=== PATIENT | female | born 1950 | race Caucasian/White ===

== ENCOUNTER 2016-06-08 12:34 | Day surgery (SDC) | payer OTHER ==
[~2016-06-08] VITALS: Ht 165.1 cm; Wt 67.4 kg
[~2016-06-08 12:34] MED LIST: ASPI-664 PO; EMPA25TA PO; GEMF600T60 PO; GLIP2.5T3 PO; METF1000 PO; OMEP20CA16 PO; SITA100T8 PO
[2016-06-08 13:56] VITALS: Ht 165.1 cm; Wt 67.4 kg
[2016-06-08 14:18] VITALS: BP 111/71; PULSE 80; RESP 18
[2016-06-08] MEDS ORDERED: LIDOCAINE 2% (SDV) 5 ML INJ ONE (14:30)
[2016-06-08] MEDS ORDERED: PROPOFOL 20 ML ONE (14:30)
[2016-06-08 15:45] VITALS: BP 110/67; PULSE 78; RESP 21
--- NOTE | 2016-06-08 16:13 | GILP ---
DATE OF PROCEDURE: PROCEDURE: Colonoscopy to cecum. PREMEDICATION: Monitored anesthesia care by anesthesiologist. SURGEON: Davis Zambrano MD INSTRUMENT USED: Olympus video colonoscope. PREPARATION: Adequate. HISTORY AND INDICATIONS: The patient for colorectal cancer screening, high risk, with history of co lonic polyps. TECHNIQUE: After informed consent, with the patient/relatives understanding the procedure, its cr cations potential risks and complications, including but not limited to: allergic reaction, bleeding , perforation, infection, missed lesions and after all pertinent questions were answered to the chasity ent's satisfaction, the patient/relatives signed the witnessed informed consent. Following this, premedication was administered slowly IV push by under careful cardiovascular and re spiratory monitoring with pulse oximetry, automatic blood pressure and trouble locator test desk. Once the sedativ e effect was achieved, the patient was placed in the left lateral decubitus position, digital rectal examination was performed. The colonoscope was then introduced and advanced under visual control th roughout all segments of the colon including: the rectum, sigmoid, descending colon, splenic flexure , transverse colon, hepatic flexure, ascending colon and finally reaching the cecum which was clearl y identified by transillumination, finger indentation and the ileocecal valve. Careful examination o f the mucosa of the lower gastrointestinal tract both on insertion as well as withdrawal of the inst rument disclosed the following findings: Rectal Examination: No evidence of perirectal disease, no masses. Colonic Mucosa: The colonic mucosa is unremarkable with the exception of diverticulosis which is mod erate in degree. There is no evidence of residual or recurrent polyps. The ileocecal valve was clearly identified an d appears unremarkable. The instrument was then withdrawn, reexamining the mucosa in detail. No additional abnormalities ar e noted with exception of moderate sized internal hemorrhoids. The patient tolerated the procedure well and was transferred out of the [facility]oscopy Suite awake and in good condition to continue recovery under observation. IMPRESSION: 1. Diverticulosis, universal, moderate degree. 2. Large internal hemorrhoids. 3. History of colon polyps. PLAN: The patient will follow up as an outpatient. Surveillance colonoscopy in 5 years is recommen ded. Annual Hemoccult stool testing is recommended as well. Dictated By: DAVIS ZAMBRANO MS/JOSEP Conf#: [id number] DID#: [id number]
== END 2016-06-08 16:06 | disposition home or self-care (01) ==
LOC: GIL 12:34
PROVIDERS: ATTEND Internal Medicine Gastroenterology
DX: Z12.11 Encounter for screening for malignant neoplasm of colon (principal); K57.30 Diverticulosis of large intestine without perforation or abscess without bleeding; K64.8 Other hemorrhoids; K21.9 Gastro-esophageal reflux disease without esophagitis; E78.5 Hyperlipidemia, unspecified; E11.9 Type 2 diabetes mellitus without complications; Z86.010 Personal history of colon polyps; Z79.84 Long term (current) use of oral hypoglycemic drugs
CPT/HCPCS: 45378; 82962; Z7610